=== PATIENT | male | born 1965 | race Caucasian/White ===

== ENCOUNTER 2016-10-25 10:20 | Emergency (ER) | payer OTHER ==
[2016-10-25 10:23] VITALS: BMI 32.9
--- NOTE | 2016-10-25 11:07 | C.PDOC ---
History Of Present Illness 50 yr old male brought in via BLS, presents to the ER stating he tripped and fell while walking and injuring his right ankle [employer]OTHER[employer]ER. Patient reports of pain and swelling to the lateral right ankle. Denies any other injuries, LOC, chest pain, neck pain, back pain, weakness or numbness. 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 Cardiovascular: Negative for: Chest Pain Musculoskeletal: Positive for: Other ((+) Right ankle, pain and swelling). Negative for: Neck Pain, Back Pain Neurological: Negative for: Weakness, Numbness Physical Exam - Physical Exam Appears: Well, Non-toxic, No Acute Distress Skin: Warm, Dry, No Rash Head: Atraumatic, Normacephalic Oral Mucosa: Moist Chest: Symmetrical, No Tenderness Cardiovascular: Rhythm Regular, No Murmur Respiratory: Normal Breath Sounds, No Rales, No Rhonchi, No Stridor, No Wheezing Extremity: No Calf Tenderness, No Deformity, Other ((+) Right Ankle - Moderate swelling and tenderness to the lateral malleolus) Neurological/Psych: Oriented x3, Normal Speech, Normal Motor ED Course And Treatment O2 Sat by Pulse Oximetry: 99 - Other Rad X-Ray - Right Ankle X-Ray: Viewed By Me, Read By Radiologist Interpretation: Right ankle three views. History: Twisting injury. Comparison : None available. Findings: Prominent lateral malleolar soft tissue swelling. Prominent widening of the medial ankle mortise measuring up to 7-9 millimeters which may represent underlying ligamentous injury. Prominent chronic fracture deformity of the distal fibula with heterotopic bone and callus formation noted. 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 Narrowing of the tibiotalar joint space posteriorly with subchondral sclerosis and osteopenia. Small bone island in the posterior calcaneus. If pain persists, consider further evaluation with MRI. Impression: Prominent lateral malleolar soft tissue swelling. Prominent widening of the medial ankle mortise measuring up to 7-9 millimeters which may represent underlying ligamentous injury. Prominent chronic fracture deformity of the distal fibula with heterotopic bone and callus formation noted. 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 Narrowing of the tibiotalar joint space posteriorly with subchondral sclerosis and osteopenia. Small bone island in the posterior calcaneus. If pain persists, consider further evaluation with MRI. Medical Decision Making Medical Decision Making: PLAN: * X-Ray - Right Ankle * Tylenol PO no acute fx's fabi aircast applied pt for crutch walking ordered Disposition - Disposition Referrals: Clinic,Med Surg [Primary Care Provider] - Disposition: HOME/ ROUTINE Disposition Time: 12:57 Condition: GOOD Prescriptions: Naproxen [Naprosyn] 1 tab PO BID PRN #25 tab PRN Reason: Pain Instructions: Ankle Sprain (ED), Ankle Stirrup Splint (ED), Ankle Exercises ( GEN) Forms: Work Excuse Print Language: GREEK - Clinical Impression Clinical Impression: Sprained ankle - Scribe Statement The provider has reviewed the documentation as recorded by the Torrie Garrido Provider Attestation: All medical record entries made by the Torrie were at my direction and personally dictated by me. I have reviewed the chart and agree that the record accurately reflects my personal performance of the history, physical exam, medical decision making, and the department course for this patient. I have also personally directed, reviewed, and agree with the discharge instructions and disposition.
--- NOTE | 2016-10-25 12:52 | RAD ---
Right ankle three views History: Twisting injury. Comparison: None available. Findings: Prominent lateral malleolar soft tissue swelling. Prominent widening of the medial ankle mortise measuring up to 7-9 millimeters which may represent underlying ligamentous injury. Prominent chronic fracture deformity of the distal fibula with heterotopic bone and callus formation noted. 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 Narrowing of the tibiotalar joint space posteriorly with subchondral sclerosis and osteopenia. Small bone island in the posterior calcaneus. If pain persists, consider further evaluation with MRI. Impression: Prominent lateral malleolar soft tissue swelling. Prominent widening of the medial ankle mortise measuring up to 7-9 millimeters which may represent underlying ligamentous injury. Prominent chronic fracture deformity of the distal fibula with heterotopic bone and callus formation noted. 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 Narrowing of the tibiotalar joint space posteriorly with subchondral sclerosis and osteopenia. Small bone island in the posterior calcaneus. If pain persists, consider further evaluation with MRI.
[2016-10-25 13:13] VITALS: BP 135/91; PULSE 75; RESP 20; TEMP 97.7
[2016-10-26 13:56] VITALS: O2SAT 99
== END 2016-10-25 13:25 | disposition home or self-care (01) ==
LOC: C.ER 10:20 → SUPCPDRO 10:20 → C.ER 13:25
DX: S93.401A Sprain of unspecified ligament of right ankle, initial encounter (principal); W01.0XXA Fall on same level from slipping, tripping and stumbling without subsequent striking against object, initial encounter
CPT/HCPCS: 73610; 97116; 97161; 99285; G8978; G8979; G8980

== ENCOUNTER 2018-03-24 12:27 | Emergency (ER) | payer OTHER ==
[2018-03-24 12:43] VITALS: BMI 26.2
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
[2018-03-24 14:06] LABS: URINE BILIRUBIN NEGATIVE (NEGATIVE); URINE BLOOD NEGATIVE (NEGATIVE); URINE CLARITY Clear (Clear); URINE COLOR Yellow (YELLOW); URINE GLUCOSE (UA) NORMAL (Normal); URINE LEUKOCYTE ESTERASE TRACE Leu/uL (Negative); URINE PROTEIN NEGATIVE (NEGATIVE)
[2018-03-24] MEDS ORDERED: cefTRIAXone (Rocephin) 250 mg Inj IM STA (15:34)
[2018-03-24 16:26] VITALS: BP 155/66; PULSE 60; RESP 18; TEMP 98.4
[2018-03-26 12:37] VITALS: O2SAT 96
== END 2018-03-24 16:26 | disposition home or self-care (01) ==
LOC: C.ER 12:27
DX: B37.2 Candidiasis of skin and nail (principal); Z72.0 Tobacco use
CPT/HCPCS: 81001; 82948; 86592; 87491; 87591; 96372; 99285; J0696

== ENCOUNTER 2018-09-12 17:04 | Emergency (ER) | payer SELFPAY ==
[2018-09-12 17:04] VITALS: BMI 26.2
[2018-09-12 17:14] VITALS: BP 137/82; PULSE 66; TEMP 97.6; O2SAT 95
--- NOTE | 2018-09-12 18:01 | C.PDOC ---
History Of Present Illness 52 y/o male presents to the ED complaining of persistent genital rash since 03/2018. Patient was evaluated on 03/24/18 for the same, and was discharged home on Lotrisone and referred for . Cultures were sent, with negative RPR, GC, UA. Patient states he took the medications for 5 days. He was never able to follow up. No new symptoms since prior eval. He denies any fever or chills. Time Seen by Provider: 09/12/18 17:31 Chief Complaint (Nursing): Male Genitourinary History Per: Patient History/Exam Limitations: no limitations Onset/Duration Of Symptoms: Days Current Symptoms Are (Timing): Still Present Past Medical History Reviewed: Historical Data, Nursing Documentation, Vital Signs Vital Signs: Last Vital Signs Temp 97.6 F 09/12/18 17:10 Pulse 66 09/12/18 17:10 Resp 18 09/12/18 17:10 BP 137/82 09/12/18 17:10 Pulse Ox 95 09/12/18 17:10 Family History: States: Unknown Family Hx - Social History Hx Tobacco Use: Yes Hx Alcohol Use: Yes Hx Substance Use: No - Immunization History Hx Tetanus Toxoid Vaccination: No Hx Influenza Vaccination: No Hx Pneumococcal Vaccination: No Review Of Systems Constitutional: Negative for: Fever, Chills Gastrointestinal: Negative for: Vomiting, Abdominal Pain Genitourinary: Positive for: Rash. Negative for: Incontinence, Hematuria Musculoskeletal: Negative for: Back Pain Neurological: Negative for: Weakness, Numbness Physical Exam - Physical Exam Appears: Non-toxic, No Acute Distress Skin: Warm, Dry Head: Atraumatic, Normacephalic Eye(s): bilateral: Normal Inspection, PERRL, EOMI Chest: Symmetrical Respiratory: No Accessory Muscle Use, Other (NARD) Gastrointestinal/Abdominal: Soft, No Tenderness, No Distention Male Genital: Other (+ Tinea with exfoliation; No swelling or discharge) Extremity: Bilateral: Atraumatic, Normal Color And Temperature Neurological/Psych: Oriented x3 Additional Physical Exam Comments: exam chaperoned by ALEXA Sánchez ED Course And Treatment O2 Sat by Pulse Oximetry: 95 Medical Decision Making Medical Decision Making: Plan: - UA and Chlamydia/GC sent Will d/c patient home with rx for Lotrisone cream. PT ADVISED NEED TO DO MED 2-4 WKS, REITERATED NEED FOR CLINIC FU Disposition Counseled Patient/Family Regarding: Studies Performed, Diagnosis, Need For Followup, Rx Given - Disposition Referrals: [facility] [Outside] [facility] [Outside] Disposition: HOME/ ROUTINE Disposition Time: 18:26 Condition: GOOD Prescriptions: Clotrimazole/Betamethasone [Lotrisone] 30 ml TOP BID #1 bottle Instructions: Desean Itch (DC) Forms: [employer] (Ukrainian) Print Language: CYMRAES - Clinical Impression Clinical Impression: Jock itch - Scribe Statement The provider has reviewed the documentation as recorded by the Torrie Hernandez Provider Attestation: All medical record entries made by the Torrie were at my direction and personally dictated by me. I have reviewed the chart and agree that the record accurately reflects my personal performance of the history, physical exam, medical decision making, and the department course for this patient. I have also personally directed, reviewed, and agree with the discharge instructions and disposition.
[2018-09-12 18:04] LABS: URINE AMORPHOUS SEDIMENT MODERATE /ul (<OCC); URINE BILIRUBIN NEGATIVE (NEGATIVE); URINE BLOOD NEGATIVE (NEGATIVE); URINE CLARITY Hazy (Clear); URINE COLOR Yellow (YELLOW); URINE GLUCOSE (UA) NORMAL (Normal); URINE LEUKOCYTE ESTERASE NEG Leu/uL (Negative); URINE PROTEIN NEGATIVE (NEGATIVE); URINE UROBILINOGEN NORMAL mg/dL (0.2-1.0)
[2018-09-12 18:55] VITALS: RESP 20
== END 2018-09-12 19:23 | disposition home or self-care (01) ==
LOC: C.ER 17:04 → EDBD 17:04 → C.ER 18:54
DX: B35.6 Tinea cruris (principal); Z72.0 Tobacco use